=== PATIENT | female | born 1995 | race Asian ===

== ENCOUNTER 2022-08-19 10:59 | Emergency (ER) | payer OTHER ==
[~2022-08-19] VITALS: Ht 162.6 cm; Wt 54.4 kg
[2022-08-19 11:30] VITALS: BP 102/63
--- NOTE | 2022-08-19 11:30 | NUR ---
BIB FRIEND C/O NAUSEA AND VOMITING SINCE WAKING UP AT 0400, DRINKING ALCOHOL AND HAD THC GUMMIES LAST NIGHT
[2022-08-19] MEDS ORDERED: ONDA4TAB5 PO (11:35)
--- NOTE | 2022-08-19 11:40 | NUR ---
Patient discharged to home in stable condition. Written and verbal after care instructions given. Patient verbalizes understanding of instruction.
== END 2022-08-19 11:43 | disposition home or self-care (01) ==
LOC: ER 11:25
DX: F12.929 Cannabis use, unspecified with intoxication, unspecified (principal); F17.200 Nicotine dependence, unspecified, uncomplicated; Z79.899 Other long term (current) drug therapy